=== PATIENT | female | born 2000 | race Caucasian/White ===

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

== ENCOUNTER → 2022-05-01 | Outpatient (CLI) | payer MEDICAID, OTHER ==
[~2022-05-01] MED LIST changes: +ALBU2.5V10 INH; -ALBU83IN INH
== END ==
LOC: M WHC 07:14
PROVIDERS: ATTEND Registered Nurse
DX: N63.23 Unspecified lump in the left breast, lower outer quadrant (principal)

== ENCOUNTER → 2022-11-05 | Outpatient (CLI) | payer OTHER ==
[~2022-11-05] MED LIST changes: +CLAR10CA3 PO; +FAMO20TA PO; +HYDR-3363 PO; +LEXA1TAB PO; +TOPA50TA8 PO; +TREL1AER PO; +VALA1TAB5 PO; +VENL75TA2 PO
== END ==
LOC: M WHC 15:16
PROVIDERS: ATTEND Nurse Practitioner Women's Health
DX: D24.2 Benign neoplasm of left breast (principal)

== ENCOUNTER → 2023-08-21 | Outpatient (CLI) | payer OTHER | LOC: M WHC 07:29 | PROVIDERS: ATTEND Registered Nurse | DX: N60.22 Fibroadenosis of left breast (principal) ==

== ENCOUNTER → 2023-11-06 | Outpatient (CLI) | payer MEDICAID, OTHER | LOC: M WHC 09:51 | PROVIDERS: ATTEND Nurse Practitioner Women's Health | DX: Z53.9 Procedure and treatment not carried out, unspecified reason (principal) ==

== ENCOUNTER → 2023-11-10 | Outpatient (CLI) | payer MEDICAID, OTHER | LOC: M WHC 12:54 | PROVIDERS: ATTEND Nurse Practitioner Women's Health | DX: D24.2 Benign neoplasm of left breast (principal) ==

== ENCOUNTER 2024-08-24 17:02 | Emergency (ER) | payer OTHER ==
[~2024-08-24] VITALS: Ht 157.5 cm; Wt 87.7 kg
[2024-08-24 18:47] VITALS: TEMP 97.7
[2024-08-24 23:45] VITALS: BP 135/60; O2SAT 97
[2024-08-24] MEDS: IBUPROFEN 600MG TAB PO ONE (23:55)
[2024-08-25] MEDS: methocarbamoL 500 MG TAB PO ONE (00:06)
[2024-08-25] MEDS ORDERED: METH-1164 PO (00:17)
== END 2024-08-25 00:32 | disposition home or self-care (01) ==
LOC: EDBD 17:02 → M ED 17:02
DX: S43.401A Unspecified sprain of right shoulder joint, initial encounter (principal); S43.402A Unspecified sprain of left shoulder joint, initial encounter; V43.52XA Car driver injured in collision with other type car in traffic accident, initial encounter; Y92.9 Unspecified place or not applicable; Y93.9 Activity, unspecified; Y99.9 Unspecified external cause status; J45.909 Unspecified asthma, uncomplicated; Z79.899 Other long term (current) drug therapy

== ENCOUNTER 2025-05-08 21:21 | Emergency (ER) | payer OTHER ==
[~2025-05-08] VITALS: Ht 157.5 cm; Wt 88.6 kg
[~2025-05-08 21:21] MED LIST changes: +AMOX875T2 PO; +METH-1164 PO
[2025-05-08] MEDS: ONDANSETRON 4MG ORAL DISINTEGRATING TAB PO ONE (22:56)
[2025-05-08] MEDS: LORazepam 1 MG TAB PO STA ×2 (22:56→23:40)
[2025-05-08 23:57] VITALS: BP 106/58; TEMP 98.4; O2SAT 97
== END 2025-05-09 00:04 | disposition home or self-care (01) ==
LOC: M ED 21:21
DX: F41.0 Panic disorder [episodic paroxysmal anxiety] (principal); J45.909 Unspecified asthma, uncomplicated; K21.9 Gastro-esophageal reflux disease without esophagitis; F90.9 Attention-deficit hyperactivity disorder, unspecified type; F32.A Depression, unspecified; Z79.3 Long term (current) use of hormonal contraceptives; Z79.899 Other long term (current) drug therapy